=== PATIENT | male | born 1990 | race Caucasian/White ===

== ENCOUNTER 2017-01-11 11:34 | Inpatient (IN) ==
--- NOTE | 2017-01-11 11:47 | Emergency Department Note ---
Disposition Clinical Impression: Abnormal EKG, Elevated troponin, Renal insufficiency, Leukocytosis, Tachycardia , Altered mental status, Left sided abdominal pain, Cocaine abuse, Marijuana abuse, Benzodiazepine abuse, Narcotic abuse, Abnormal urinalysis, Lactic acidosis, Acute kidney injury Disposition: Admitted As Inpatient General Adult HPI - General Chief complaint: ED Overdose Stated complaint: Possible Overdose Time Seen by Provider: 01/11/17 11:46 Source: patient, EMS Limitations: no limitations - History of Present Illness HPI Narrative: 26-year-old male brought in by EMS from home. His female continuing education specialist was worried about his mental status. The patient was reportedly poorly arousable this morning and remained persistently poorly arousable. The patient's female continuing education specialist called EMS about the patient, and reportedly another female individual was at the home who was also brought into the ED via EMS for altered mental status per the patient's female continuing education specialist. The patient may have taken some Percocet last evening. There is no history of suicidality or homicidality. The patient complains of a headache as well as some left rib and abdominal pain. There is no history of trauma. The patient has no history of diabetes. He has no history of seizures. He is generally healthy. There is no history of fever. No vomiting or diarrhea. No trouble moving the arms or legs independently. No falls or injuries reported. There is no history of ingestion of other drugs of abuse or toxic substances. Pain Scale: 0 - Related Data Home Medications Medication Instructions Recorded Confirmed No Known Home Drugs 01/11/17 01/11/17 Allergies Allergy/AdvReac Type Severity Reaction Status Date / Time No Known Allergies Allergy Verified 10/22/15 23:48 All systems ED: reviewed and negative except as stated. Past Medical History - Past Medical History Medical history: Reports: no medical history Surgical history: Reports: no surgical history Psychiatric history: Reports: no psych history - Social History Smoking Status: Current every day smoker Smokeless Tobacco Status: No Alcohol use: Reports: occasionally Drug use: Reports: marijuana, prescription drug abuse Physical Exam - General Limitations: no limitations, other (The patient's laying with his eyes closed, he is well-nourished well-developed age-appropriate. He is arousable and does answer basic questions properly but when not stimulated closes his eyes and does not spontaneously interact.) General appearance: alert, in no apparent distress - Head Head exam: atraumatic, normocephalic, normal inspection - Eye Eye exam: Present: normal appearance, PERRL, EOMI, miosis (Slight miosis noted.) - ENT ENT exam: normal exam, normal oropharynx, mucous membranes moist, TM's normal bilaterally, normal external ear exam - Neck Neck exam: Present: normal inspection, full ROM, trachea midline. Absent: tenderness, meningismus - Chest Chest inspection: Present: symmetric chest wall rise, tenderness (Left lateral inferior ribs tender to palpation no qi bruising.) - Respiratory Respiratory exam: Present: normal lung sounds bilaterally. Absent: respiratory distress - Cardiovascular Cardiovascular exam: Present: regular rate, tachycardia - Abdominal Exam Abdominal exam: Present: soft, tenderness, normal bowel sounds, other (Pain in the left upper abdomen to palpation. This is reproducible, the patient has trouble sitting up secondary to pain). Absent: distention, guarding, rebound, rigidity, trauma, Escobar's sign, Rovsing's sign, tenderness at McBurney's Point , ascites, pulsatile mass Abdominal tenderness: Present: LUQ - Extremities Exam Extremities exam: Present: normal inspection, full ROM. Absent: tenderness, pedal edema - Expanded Lower Extremity Exam Hip/Pelvis exam: Present: full ROM. Absent: tenderness Upper leg exam: Present: full ROM. Absent: tenderness Knee exam: Present: full ROM. Absent: tenderness Lower leg exam: Present: full ROM. Absent: tenderness, Homans' sign Ankle exam: Present: full ROM. Absent: tenderness Foot/toe exam: Present: full ROM. Absent: tenderness Neurovascular/Tendon exam: Present: normal capillary refill. Absent: pulse deficit, motor deficit, sensory deficit, tendon deficit, extremity cold to touch , pallor - Back Exam Back exam: Present: normal inspection, full ROM. Absent: tenderness, CVA tenderness (R), CVA tenderness (L), vertebral tenderness - Neurological Exam Neurological exam: Present: alert, oriented X3, CN II-XII intact. Absent: motor sensory deficit - Psychiatric Psychiatric exam: Present: normal affect, normal mood - Skin Skin exam: Present: warm, dry, intact, normal color. Absent: rash, cyanosis, diaphoresis, erythema, pallor, mottled Course - Reevaluation(s) Reevaluation #1: An EKG was obtained which showed diffus ST elevations and more pronounced in V4 and V5. Compared to previous EKG this appears to be significantly abnormal. We have paged pupil personnel services director on-call, the ED charge nurse is taking the EKG directly to the Communication Engineer for their review. The patient complains of left lateral rib pain which seems to be reproducible palpation in the left upper quadrant and left ribs. There is no evidence of injury. *Dr. Alas/Interventional Cardiology reviewed the EKG directly. She feels this is more likely pericarditis recommends medical management. I discussed the case directly with her. Vital Signs Temperature 97.9 F 01/11/17 11:35 Pulse Rate 130 01/11/17 11:35 Respiratory Rate 16 01/11/17 11:35 Blood Pressure 123/84 01/11/17 11:35 O2 Sat by Pulse Oximetry 91 01/11/17 11:35 Temperature 97.9 F 01/11/17 11:35 Pulse Rate 93 01/11/17 15:30 Respiratory Rate 16 01/11/17 15:30 Blood Pressure 93/57 01/11/17 15:30 O2 Sat by Pulse Oximetry 98 01/11/17 15:30 Oxygen Delivery Oxygen Delivery Room Air Medical Decision Making - MDM Narrative Medical decision making narrative: During the patient's ED stay, he reports he was snorting white lines last night. His toxicology shows multiple drugs of abuse including cocaine marijuana opiates and benzodiazepines. The patient has no metabolic lactic acidosis, IV fluids were given. Aspirin was given. Based on his significant laboratory abnormalities, confusion, multidrug abuse, and acute presentation, I thought would be appropriate to admit the patient to the hospital. He is currently stable. The patient may have an element of pericarditis or other cardiac pathology. His troponin is elevated, his EKG is abnormal. I discussed the case with the hospitalist on-call. The packer on-call was also consulted during the patient's ED stay. The patient is currently stable pending admission. *The patient was given a few liters of IV fluid, his serum lactate dropped at 3.1. A second troponin is been ordered. - Lab Data Lab results reviewed: Yes I reviewed the patient's lab results. Result diagrams: 01/11/17 12:26 01/11/17 12:26 Lab Results 01/11/17 01/11/17 01/11/17 Range/Units 12:26 12:26 12:26 WBC 25.1 H (4.3-11.1) K/mcL RBC 5.13 (4.19-5.50) M/mcL Hgb 14.7 (12.9-16.9) g/dL Hct 45.8 (37.5-50.1) % MCV 89.3 (83.0-100.0) fL MCH 28.7 (28.0-33.3) pg MCHC 32.1 (31.6-35.5) g/dL RDW 12.3 (11.5-14.5) % Plt Count 268 (140-400) K/mcL MPV 10.3 (9.4-12.4) fL Immature Gran % 1.2 (0-4) % Seg Neutrophils % 84.8 % Lymphocytes % 3.2 % Monocytes % 10.6 % Eosinophils % 0.0 % Basophils % 0.2 % Neutrophils # 21.3 H (1.6-8.9) K/mcL Lymphocytes # 0.8 (0.6-4.6) K/mcL Monocytes # 2.7 H (0.0-1.3) K/mcL Eosinophils # 0.0 (0.0-0.6) K/mcL Basophils # 0.1 (0.0-0.2) K/mcL Platelet Estimate Normal (Normal) Sodium 140 (136-145) mEq/L Potassium 5.0 H (3.5-4.5) mEq/L Chloride 104 (98-109) mEq/L Carbon Dioxide 20 (19-29) mEq/L BUN 24 (8-26) mg/dL Creatinine 1.63 H (0.72-1.25) mg/dL Est GFR ( Amer) > 60 (> 60) Est GFR (Non-Af Amer) 52 L (> 60) BUN/Creatinine Ratio 15 (6-26) Glucose 94 (70-99) mg/dL Calculated Osmolality 294 (280-300) Lactic Acid 4.4 H* (0.5-2.2) mmol/L Calcium 9.4 (8.6-10.8) mg/dL Total Bilirubin 0.4 (0.2-1.2) mg/dL Direct Bilirubin 0.2 (0.0-0.5) mg/dL Indirect Bilirubin 0.2 (0.0-1.2) mg/dL AST 44 H (5-34) Units/L ALT 24 (0-55) Units/L Alkaline Phosphatase 105 (38-126) Units/L Troponin I (0-0.03) ng/mL C-Reactive Protein 3 (Less than 5) mg/L Serum Total Protein 7.5 (6.0-8.3) g/dL Albumin 4.5 (3.5-5.0) g/dL Globulin 3.0 (2.4-3.5) g/dL Albumin/Globulin Ratio 1.5 (1.1-2.2) Lipase 10 (8-78) Units/L Urine Color (Yellow) Urine Clarity (Clear) Urine pH (5.0-8.0) pH Units Ur Specific [place] (1.010-1.025) Urine Protein (Neg-Trace) mg/dL Urine Glucose (UA) (Normal) mg/dL Urine Ketones (Negative) mg/dL Urine Blood (Negative) Urine Nitrite (Negative) Urine Bilirubin (Negative) Urine Urobilinogen (Normal) mg/dL Ur Leukocyte Esterase (Negative) Urine Microscopic RBC (0-3) per hpf Urine Microscopic WBC (0-3) per hpf Ur Squamous Epith Cells (None-Few) per lpf Urine Bacteria (None-Few) per hpf Salicylates < 5.0 L (15-30) mg/dL Urine Opiates Screen (Kipjua=650) ng/mL Acetaminophen < 1.0 L (10-30) mcg/mL Ur Barbiturates Screen (Prulbj=297) ng/mL Ur Phencyclidine Scrn (Cutoff=25) ng/mL Ur Amphetamines Screen (Gqpndt=2799) ng/mL U Benzodiazepines Scrn (Zvstoz=216) ng/mL Urine Cocaine Screen (Cutoff= 300) ng/mL U Marijuana (THC) Screen (Cutoff = 50) ng/mL Ethyl Alcohol < 10 (0-10) mg/dL 01/11/17 01/11/17 01/11/17 Range/Units 12:26 13:40 13:40 WBC (4.3-11.1) K/mcL RBC (4.19-5.50) M/mcL Hgb (12.9-16.9) g/dL Hct (37.5-50.1) % MCV (83.0-100.0) fL MCH (28.0-33.3) pg MCHC (31.6-35.5) g/dL RDW (11.5-14.5) % Plt Count (140-400) K/mcL MPV (9.4-12.4) fL Immature Gran % (0-4) % Seg Neutrophils % % Lymphocytes % % Monocytes % % Eosinophils % % Basophils % % Neutrophils # (1.6-8.9) K/mcL Lymphocytes # (0.6-4.6) K/mcL Monocytes # (0.0-1.3) K/mcL Eosinophils # (0.0-0.6) K/mcL Basophils # (0.0-0.2) K/mcL Platelet Estimate (Normal) Sodium (136-145) mEq/L Potassium (3.5-4.5) mEq/L Chloride (98-109) mEq/L Carbon Dioxide (19-29) mEq/L BUN (8-26) mg/dL Creatinine (0.72-1.25) mg/dL Est GFR ( Amer) (> 60) Est GFR (Non-Af Amer) (> 60) BUN/Creatinine Ratio (6-26) Glucose (70-99) mg/dL Calculated Osmolality (280-300) Lactic Acid (0.5-2.2) mmol/L Calcium (8.6-10.8) mg/dL Total Bilirubin (0.2-1.2) mg/dL Direct Bilirubin (0.0-0.5) mg/dL Indirect Bilirubin (0.0-1.2) mg/dL AST (5-34) Units/L ALT (0-55) Units/L Alkaline Phosphatase (38-126) Units/L Troponin I 1.01 H* (0-0.03) ng/mL C-Reactive Protein (Less than 5) mg/L Serum Total Protein (6.0-8.3) g/dL Albumin (3.5-5.0) g/dL Globulin (2.4-3.5) g/dL Albumin/Globulin Ratio (1.1-2.2) Lipase (8-78) Units/L Urine Color Yellow (Yellow) Urine Clarity Cloudy A (Clear) Urine pH 5.5 (5.0-8.0) pH Units Ur Specific [place] 1.029 H (1.010-1.025) Urine Protein 30 H (Neg-Trace) mg/dL Urine Glucose (UA) Normal (Normal) mg/dL Urine Ketones Negative (Negative) mg/dL Urine Blood Negative (Negative) Urine Nitrite Negative (Negative) Urine Bilirubin Negative (Negative) Urine Urobilinogen Normal (Normal) mg/dL Ur Leukocyte Esterase Negative (Negative) Urine Microscopic RBC 5-15 H (0-3) per hpf Urine Microscopic WBC 3-5 H (0-3) per hpf Ur Squamous Epith Cells Many H (None-Few) per lpf Urine Bacteria None Seen (None-Few) per hpf Salicylates (15-30) mg/dL Urine Opiates Screen Positive H (Wxfiuy=262) ng/mL Acetaminophen (10-30) mcg/mL Ur Barbiturates Screen Negative (Ssvzyd=001) ng/mL Ur Phencyclidine Scrn Negative (Cutoff=25) ng/mL Ur Amphetamines Screen Negative (Bzizxh=5399) ng/mL U Benzodiazepines Scrn Positive H (Knsbrq=292) ng/mL Urine Cocaine Screen Positive H (Cutoff= 300) ng/mL U Marijuana (THC) Screen Positive H (Cutoff = 50) ng/mL Ethyl Alcohol (0-10) mg/dL 01/11/17 Range/Units 15:01 WBC (4.3-11.1) K/mcL RBC (4.19-5.50) M/mcL Hgb (12.9-16.9) g/dL Hct (37.5-50.1) % MCV (83.0-100.0) fL MCH (28.0-33.3) pg MCHC (31.6-35.5) g/dL RDW (11.5-14.5) % Plt Count (140-400) K/mcL MPV (9.4-12.4) fL Immature Gran % (0-4) % Seg Neutrophils % % Lymphocytes % % Monocytes % % Eosinophils % % Basophils % % Neutrophils # (1.6-8.9) K/mcL Lymphocytes # (0.6-4.6) K/mcL Monocytes # (0.0-1.3) K/mcL Eosinophils # (0.0-0.6) K/mcL Basophils # (0.0-0.2) K/mcL Platelet Estimate (Normal) Sodium (136-145) mEq/L Potassium (3.5-4.5) mEq/L Chloride (98-109) mEq/L Carbon Dioxide (19-29) mEq/L BUN (8-26) mg/dL Creatinine (0.72-1.25) mg/dL Est GFR ( Amer) (> 60) Est GFR (Non-Af Amer) (> 60) BUN/Creatinine Ratio (6-26) Glucose (70-99) mg/dL Calculated Osmolality (280-300) Lactic Acid 3.1 H (0.5-2.2) mmol/L Calcium (8.6-10.8) mg/dL Total Bilirubin (0.2-1.2) mg/dL Direct Bilirubin (0.0-0.5) mg/dL Indirect Bilirubin (0.0-1.2) mg/dL AST (5-34) Units/L ALT (0-55) Units/L Alkaline Phosphatase (38-126) Units/L Troponin I (0-0.03) ng/mL C-Reactive Protein (Less than 5) mg/L Serum Total Protein (6.0-8.3) g/dL Albumin (3.5-5.0) g/dL Globulin (2.4-3.5) g/dL Albumin/Globulin Ratio (1.1-2.2) Lipase (8-78) Units/L Urine Color (Yellow) Urine Clarity (Clear) Urine pH (5.0-8.0) pH Units Ur Specific [place] (1.010-1.025) Urine Protein (Neg-Trace) mg/dL Urine Glucose (UA) (Normal) mg/dL Urine Ketones (Negative) mg/dL Urine Blood (Negative) Urine Nitrite (Negative) Urine Bilirubin (Negative) Urine Urobilinogen (Normal) mg/dL Ur Leukocyte Esterase (Negative) Urine Microscopic RBC (0-3) per hpf Urine Microscopic WBC (0-3) per hpf Ur Squamous Epith Cells (None-Few) per lpf Urine Bacteria (None-Few) per hpf Salicylates (15-30) mg/dL Urine Opiates Screen (Mhmews=013) ng/mL Acetaminophen (10-30) mcg/mL Ur Barbiturates Screen (Onxamu=809) ng/mL Ur Phencyclidine Scrn (Cutoff=25) ng/mL Ur Amphetamines Screen (Qdfbbt=7976) ng/mL U Benzodiazepines Scrn (Nxuwjz=031) ng/mL Urine Cocaine Screen (Cutoff= 300) ng/mL U Marijuana (THC) Screen (Cutoff = 50) ng/mL Ethyl Alcohol (0-10) mg/dL - Radiology Data Radiology results reviewed: Yes I reviewed the patient's radiology results.
[2017-01-11 12:33] LABS: Basophils # 0.1 K/mcL (0.0-0.2); Basophils % 0.2 %; Hematocrit 45.8 % (37.5-50.1); Hemoglobin 14.7 g/dL (12.9-16.9); Immature Granulocytes % 1.2 % (0-4); Lymphocytes # 0.8 K/mcL (0.6-4.6); Lymphocytes % 3.2 %; Mean Corpuscular HGB Conc 32.1 g/dL (31.6-35.5); Mean Corpuscular Hemoglobin 28.7 pg (28.0-33.3); Mean Corpuscular Volume 89.3 fL (83.0-100.0); Mean Platelet Volume 10.3 fL (9.4-12.4); Monocytes # 2.7 K/mcL (0.0-1.3); Monocytes % 10.6 %; Neutrophils # 21.3 K/mcL (1.6-8.9); Platelet Count 268 K/mcL (140-400); Red Blood Count 5.13 M/mcL (4.19-5.50); Red Cell Distribution Width 12.3 % (11.5-14.5); Segmented Neutrophils % 84.8 %
[2017-01-11 12:49] LABS: Acetaminophen < 1.0 mcg/mL (10-30); Alanine Aminotransferase 24 Units/L (0-55); Albumin 4.5 g/dL (3.5-5.0); Albumin/Globulin Ratio 1.5 (1.1-2.2); Alkaline Phosphatase 105 Units/L (38-126); Aspartate Amino Transferase 44 Units/L (5-34); BUN/Creatinine Ratio 15 (6-26); Bilirubin,Direct 0.2 mg/dL (0.0-0.5); Bilirubin,Indirect 0.2 mg/dL (0.0-1.2); Bilirubin,Total 0.4 mg/dL (0.2-1.2); Blood Urea Nitrogen 24 mg/dL (8-26); Calcium 9.4 mg/dL (8.6-10.8); Carbon Dioxide 20 mEq/L (19-29); Chloride 104 mEq/L (98-109); Ethanol < 10 mg/dL (0-10); Glucose 94 mg/dL (70-99); Lipase 10 Units/L (8-78); Osmolality,Calculated 294 (280-300); Platelet Estimate Normal (Normal); Salicylate < 5.0 mg/dL (15-30); Sodium 140 mEq/L (136-145); Total Protein 7.5 g/dL (6.0-8.3); eGFR For African Americans > 60 (> 60); eGFR For Non-African Americans 52 (> 60)
[2017-01-11] MEDS ORDERED: 0.9 % Sodium Chloride 1,000 ML IVC ONE ×3 (12:59→16:15)
[2017-01-11] MEDS ORDERED: Aspirin 325 MG TABLET PO ONE ×2 (12:59→16:46)
[2017-01-11 13:02] LABS: C-Reactive Protein 3 mg/L (Less than 5)
[2017-01-11] MEDS ORDERED: Ondansetron 4 MG/2 ML VIAL IVP ONE (13:46)
[2017-01-11 13:48] LABS: Bilirubin,Urine Negative (Negative); Blood,Urine Negative (Negative); Clarity,Urine Cloudy (Clear); Color,Urine Yellow (Yellow); Glucose,Urine (UA) Normal (Normal); Ketones,Urine Negative (Negative); Leukocyte Esterase,Urine Negative (Negative); Nitrite,Urine Negative (Negative); PH,Urine 5.5 pH Units (5.0-8.0); Protein,Urine 30 mg/dL (Neg-Trace); Specific Gravity,Urine 1.029 (1.010-1.025); Urobilinogen,Urine Normal (Normal)
[2017-01-11 13:49] LABS: Bacteria,Urine None Seen per hpf (None-Few); Squamous Epithelial Cell,Urine Many per lpf (None-Few)
[2017-01-11 13:55] LABS: Amphetamine Screen,Urine Negative ng/mL (Cutoff=1000); Barbiturate Screen,Urine Negative ng/mL (Cutoff=200); Benzodiazepines Screen,Urine Positive ng/mL (Cutoff=200); Cannabinoid Screen,Urine Positive ng/mL (Cutoff = 50); Cocaine Screen,Urine Positive ng/mL (Cutoff= 300); Opiate Screen,Urine Positive ng/mL (Cutoff=300); Phencyclidine Screen,Urine Negative ng/mL (Cutoff=25)
[2017-01-11] MEDS ORDERED: Acetaminophen 325 MG TABLET PO PRN (16:42)
[2017-01-11] MEDS ORDERED: Ondansetron 4 MG/2 ML VIAL IVP PRN (16:42)
[2017-01-11] MEDS ORDERED: *HR* Morphine 2 MG/ML SYRINGE IVP PRN (16:42)
[2017-01-11] MEDS ORDERED: Naloxone 0.4 MG/ML INJ IVP PRN (16:42)
[2017-01-11] MEDS ORDERED: *HR* HYDROcodone/Acet 5/325 mg TABLET PO PRN (16:42)
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
[2017-01-11] MEDS: 0.9 % Sodium Chloride 1,000 ML IVC SCH (19:39)
[2017-01-11] MEDS ORDERED: *HR* LORazepam 2 MG/ML VIAL IVP PRN (20:27)
[2017-01-11 22:40] LABS: BUN/Creatinine Ratio 18 (6-26); Blood Urea Nitrogen 23 mg/dL (8-26); Calcium 8.7 mg/dL (8.6-10.8); Carbon Dioxide 22 mEq/L (19-29); Chloride 106 mEq/L (98-109); Glucose 89 mg/dL (70-99); Osmolality,Calculated 285 (280-300); Potassium 4.8 mEq/L (3.5-4.5); Sodium 136 mEq/L (136-145); eGFR For African Americans > 60 (> 60); eGFR For Non-African Americans > 60 (> 60)
--- NOTE | 2017-01-11 23:23 | Event Note ---
Date of Encounter: 01/11/17 Time of Encounter: 23:21 Called by RN about patient meeting criteria for sepsis. Based upon admission notes and RN impression, criteria likely due to multi-drug overdose. Lactate levels have normalized. He has received fluid boluses and is on MIV currently. I will order blood and urine cultures and start empiric antibiotics for now. Repeat labs already ordered for a.m.
[2017-01-11] MEDS ORDERED: Vancomycin 1,000 MG in D5% in Water 250 ML IVPB SCH (23:45)
[2017-01-11] MEDS: Aspirin 325 MG TABLET PO SCH (23:59)
[2017-01-12] MEDS: Piperacillin/Tazobactam 3.375 GM in D5% in Water (Mini-Bag+) 100 ML IVPB SCH ×3 (00:19→15:52)
[2017-01-12 00:47] LABS: Basophils % 0.1 %; Hematocrit 39.6 % (37.5-50.1); Hemoglobin 13.5 g/dL (12.9-16.9); Immature Granulocytes % 1.2 % (0-4); Lymphocytes # 1.2 K/mcL (0.6-4.6); Lymphocytes % 5.5 %; Mean Corpuscular HGB Conc 34.1 g/dL (31.6-35.5); Mean Corpuscular Hemoglobin 29.6 pg (28.0-33.3); Mean Corpuscular Volume 86.8 fL (83.0-100.0); Mean Platelet Volume 11.2 fL (9.4-12.4); Monocytes % 4.6 %; Neutrophils # 18.7 K/mcL (1.6-8.9); Platelet Count 242 K/mcL (140-400); Red Blood Count 4.56 M/mcL (4.19-5.50); Red Cell Distribution Width 12.8 % (11.5-14.5); Segmented Neutrophils % 88.6 %
[2017-01-12 00:52] LABS: INR 1.3; Prothrombin Time 14.2 Seconds (9.4-12.1)
[2017-01-12 00:55] LABS: Activated Partial Thrombo Time 31.8 Seconds (26.0-36.0)
[2017-01-12 01:07] LABS: BUN/Creatinine Ratio 18 (6-26); Blood Urea Nitrogen 23 mg/dL (8-26); Carbon Dioxide 19 mEq/L (19-29); Chloride 106 mEq/L (98-109); Glucose 86 mg/dL (70-99); Osmolality,Calculated 291 (280-300); Potassium 4.5 mEq/L (3.5-4.5); Sodium 139 mEq/L (136-145); eGFR For African Americans > 60 (> 60); eGFR For Non-African Americans > 60 (> 60)
[2017-01-12 01:09] LABS: Albumin 3.7 g/dL (3.5-5.0); Albumin/Globulin Ratio 1.5 (1.1-2.2); Bilirubin,Direct 0.2 mg/dL (0.0-0.5); Bilirubin,Indirect 0.3 mg/dL (0.0-1.2); Bilirubin,Total 0.5 mg/dL (0.2-1.2); Globulin 2.4 g/dL (2.4-3.5); Total Protein 6.1 g/dL (6.0-8.3)
[2017-01-12] MEDS: Vancomycin 1,000 MG in D5% in Water 250 ML IVPB SCH ×3 (01:29→23:48)
[2017-01-12] MEDS: 0.9 % Sodium Chloride 1,000 ML IVC SCH ×4 (03:29→19:29)
[2017-01-12] MEDS: Aspirin 325 MG TABLET PO SCH (06:19)
--- NOTE | 2017-01-12 09:54 | ECHO - Doppler Report ---
Echocardiogram Name: Bulmaro Fajardo Date of Study: 01/12/2017 Date: 1990 Ht: 72.0 in Medical Record#: [id number] Age: 26 Wt: 154.0 lb Gender: Male BSA: 1.91 Order #: [id number] Location: [facility] Room #: 2N05 Reading Physician: Wanda Booker DO Bottom Steep Tender: Kenroy Prieto RDCS Ordering Physician: Gian Bhandari MD Primary Physician: None Indications: Pericarditis Impressions: LVEF 55%. Normal left ventricular size and systolic function. Normal diastolic function of the left ventricle. Normal right ventricular size and function. No significant valvular dysfunction. No pulmonary hypertension. Left Ventricular Wall Motion: Rest Echo Findings All wall segments showed normal motion. Findings: Study Quality * Technically adequate exam. ECG Findings * Normal sinus rhythm. Left Ventricle * LVEF 55%. * Normal LV chamber size, wall thickness and function. * Normal left ventricular diastolic function. Left Atrium * Normal left atrial size. Mitral Valve * Normal mitral valve structure. * No mitral stenosis. * No mitral regurgitation. Aortic Valve * No aortic regurgitation. * Aortic valve not well visualized. * No aortic stenosis. Tricuspid Valve * Normal tricuspid valve structure. * Estimated RA pressure is 3 mmHg. * Trace tricuspid regurgitation. Pulmonic Valve * Normal pulmonic valve structure. * No pulmonic stenosis. * Trace pulmonic regurgitation. Pulmonary Artery * Normal visualized portions of the main pulmonary artery. Right Ventricle * Normal right ventricular structure and function. Right Atrium * Normal right atrial size. Pericardium * There is no pericardial effusion present. Interatrial Septum * No evidence of PFO by color Doppler. IVC * The IVC is not dilated. Aorta * Normally sized aortic root. History History of Smoking Years 10 Packs 1 Measurements: BP: 94/ 60 2D Normal Values RVIDd: 2.89 cm <2.7 cm IVSd: .85 cm 0.6 - 1.0 cm LVIDd: 4.84 cm 3.7 - 5.6 cm LVPWd: .80 cm 0.6 - 1.1 cm LVIDs: 3.34 cm 1.5 - 3.6 cm AO: 2.20 cm < 4.0 cm LA: 2.70 cm 2.0 - 4.0cm %FS: 31.00 cm >25 % LA volume: 39 Mitral Valve Peak E:.95 m/sec Peak A:.62 m/sec E/A Ratio:1.5 Peak E' Lat Walker:11.4 cm/s Peak E' Med Walker:10.7 cm/s E/E' Lat Ratio:8.3 E/E' Med Ratio:8.9 Tricuspid Valve TV Regurg Peak Grad: 12.00mmHg TV Regurg Peak Walker: 1.75m/sec Updated by Wanda Booker on 01/12/2017 9:47:24 AM electronically signed on 01/12/2017 9:48:12 AM with status of Final Wall Motion Cespedes: 1=Normal, 2=Hypokinesis, 3=Akinesis, 4=Dyskinesis, 5=Aneurysmal, 6=Hyperkinetic, X=Not Visualized (Blank)=Missing
--- NOTE | 2017-01-12 10:21 | Cardiology Consult Note ---
Date of Encounter: 01/12/17 Time of Encounter: 10:00 Assessment and Plan (1) Elevated troponin Current Visit: Yes Status: Acute Peak troponin 1.01 with downward trend in the setting overdose with: benzo, cocaine, marijuana, and opiates. ECG changes and elevated troponin likely secondary to overdose. Risk factors for CAD include: tobacco use, 1ppd. He denies IVDA--reports by mouth/snorting. TTE shows preserved LVEF, 55% with normal wall motion, no significant valvular dysfunction. Discussed importance of sober lifestyle. No further testing recommended from Cardiology standpoint. (2) Abnormal EKG Current Visit: Yes Status: Acute Plan as stated above. (3) Cocaine abuse Current Visit: Yes Status: Acute Discussion w patient/family: The assessment and plan as outlined above was discussed with the patient and/or family members who expressed understanding and agreement. All questions were answered. Thank you for involving us in the care of your patient. Please call with any questions. The patient will be discussed and reviewed with Dr. Jaime; changes to be made accordingly. History of Present Illness Consult date: 01/12/17 Requesting physician: Gian Bhandari Consult reason: Elevated troponin, abnormal ECG Chief complaint: Overdose History of present illness: Mr. Fajardo is a 26 year old male with no significant PMH presented to the ED due to AMS; EMS was reportedly called by friend because he was poorly arousable. Urine drug screen tested positive for benzo, cocaine, marijuana, and opiates. ECG demonstrated diffuse ST abnormalities; reviewed with interventionalist, Dr. Alas upon presentation who felt changes were secondary to pericarditis. He denies recent cough/flu/or viral illness. States he was in his normal state of health up until event yesterday. He denies IVDA, states all illicit drug use was "snorted." Past Med Surg Social Fam HX - Past Medical History Attestation: Yes The following information was validated with the patient. Source: patient Medical history: no medical history Psychiatric history: no psych history - Past Surgical History Surgical History: orthopedic, other (left foot, plates) - Social History Smoking Status: Current every day smoker Packs per day: 1 Smokeless Tobacco Status: No Alcohol use: occasionally Drug use: cocaine, marijuana, prescription drug abuse - Family History Mother Living Status: Still Living Hx Family Cardiac Disorders: Yes (HTN) Medications and Allergies No Known Home Drugs 01/11/17 [History] Allergies No Known Allergies Allergy (Verified 10/22/15 23:48) All Systems Review: A 10-system review of systems was performed and is negative for pertinent findings except as documented above in the HPI. - Cardiovascular Cardiovascular: as per HPI Physical Examination Vital Signs, Last 4 Hours Temp Pulse Resp BP Pulse Ox 01/12/17 07:56 98.4 F 88 16 94/60 97 01/12/17 07:00 88 General: Conversant, No Apparent Distress HEENT: Atraumatic, Normocephaly Cardiac: Reg Rate and Rhythm, Normal S1 and S2 Lungs: Normal Breath Sounds, No Wheeze, Rales, Rhonchi Neuro: Alert and responsive, No focal deficits noted Abdomen: Soft, Non-Tender Skin: No rashes noted on visualized skin Musculoskeletal: No Chest Wall Tenderness Extremities: No Edema, Normal Pulses Results 01/12/17 00:25 01/12/17 00:25 Lab Results 01/11/17 01/11/17 01/12/17 19:00 21:57 00:25 WBC 21.1 H Hgb 13.5 Hct 39.6 Plt Count 242 INR APTT Sodium 136 Potassium 4.8 H Chloride 106 Carbon Dioxide 22 BUN 23 Creatinine 1.29 H Glucose 89 Calcium 8.7 Total Bilirubin AST ALT Alkaline Phosphatase Troponin I 0.86 H* 01/12/17 01/12/17 01/12/17 00:25 00:25 00:25 WBC Hgb Hct Plt Count INR 1.3 APTT 31.8 Sodium 139 Potassium 4.5 Chloride 106 Carbon Dioxide 19 BUN 23 Creatinine 1.28 H Glucose 86 Calcium 9.0 Total Bilirubin 0.5 AST 30 ALT 20 Alkaline Phosphatase 63 Troponin I 01/12/17 05:57 WBC Hgb Hct Plt Count INR APTT Sodium Potassium Chloride Carbon Dioxide BUN Creatinine Glucose Calcium Total Bilirubin AST ALT Alkaline Phosphatase Troponin I 0.36 H* - Imaging and Cardiology Echo: report reviewed Other Results: 12 hour tele: avg HR=78 SR. No signficant events noted. - EKG Interpretation EKG results cardiology: personally reviewed Consult Discharge Plan - Plan Referrals: NO,PCP [Primary Care Provider] -
--- NOTE | 2017-01-12 13:00 | Internal Med Progress Note ---
Date of Encounter: 01/12/17 Time of Encounter: 12:44 - Assessment and plan (1) Polysubstance abuse Current Visit: Yes Status: Acute Assessment and plan: Urine tox screen positive for Opiates, Benzos, Cocaine, and Marijuana Patient denies any IVDA 2D echo negative for any valvular disease extensive counseling provided against polysubstance abuse patient not very cooperative, and does not appear to want to quit polysubstance use social service liaison consultation requested mental status at baseline will continue to monitor no signs of withdrawal present at this time, will continue to monitor (2) Overdose Current Visit: Yes Status: Acute Assessment and plan: as listed above Qualifiers: Encounter type: initial encounter Injury intent: undetermined intent Qualified Code(s): T50.904A - Poisoning by unspecified drugs, medicaments and biological substances, undetermined, initial encounter (3) Leukocytosis Current Visit: Yes Status: Acute Assessment and plan: Likely reactive however given severity will continue with empiric abx for one more day and de-escalate therapy as per culture reports Qualifiers: Leukocytosis type: unspecified Qualified Code(s): D72.829 - Elevated white blood cell count, unspecified (4) Tobacco abuse Current Visit: Yes Status: Chronic Assessment and plan: smoking cessation counseling provided patient not ready to quit at this time refused nicotine replacement therapy (5) Acute kidney injury Current Visit: Yes Status: Acute Assessment and plan: Likely secondary to drug abuse will continue IV fluids continue to avoid nephrotoxic agents will continue to monitor (6) Elevated troponin Current Visit: Yes Status: Acute Assessment and plan: cardiology eval appreciated no further intervention recommended at this time no chest pain reported discontinue high dose aspirin. - Subjective Interval history: Patient seen and examined with his mother present at bedside. Patient reports of having history of drug abuse for the last few years. He is agitated when confronted about his drug abuse. Denies any complains at this time. Extensive counseling was provided to the patient in regards to his tobacco and polysubstance abuse. - Constitutional Vitals: Temp Pulse Resp BP Pulse Ox 98.2 F 70 18 105/70 95 01/12/17 10:48 01/12/17 10:48 01/12/17 10:48 01/12/17 10:48 01/12/17 10:48 General appearance: Present: cooperative, A&O X 3, pleasant, answers questions appropriately - Head Head exam: Present: atraumatic, normocephalic - Eye Eye exam: Present: PERRL, conjuntiva pink, sclera anicteric - Respiratory Respiratory exam: Present: CTAB. Absent: accessory muscle use, rales, rhonchi, wheezes - Cardiovascular Cardiovascular exam: Present: RRR, +S1, +S2. Absent: diastolic murmur, gallop, rubs, systolic murmur - GI/Abdominal GI/Abdominal exam: Present: normal bowel sounds, soft, no peritoneal signs. Absent: distended, tenderness - Extremities Exam Extremities exam: Present: warm, radial pulses palpable and symetrical. Absent : calf tenderness, cyanotic, pedal edema - Neurological Exam Neurological exam: Present: alert, oriented X3 - Psychiatric Psychiatric exam: Present: normal affect, normal mood Internal Medicine: Result - Labs CBC & Chem 7: 01/12/17 00:25 01/12/17 00:25 Labs: Short CBC 01/12/17 Range/Units 00:25 WBC 21.1 H (4.3-11.1) K/mcL Hgb 13.5 (12.9-16.9) g/dL Hct 39.6 (37.5-50.1) % Plt Count 242 (140-400) K/mcL Neutrophils # 18.7 H (1.6-8.9) K/mcL BMP 01/11/17 01/12/17 21:57 00:25 Sodium 136 139 Potassium 4.8 H 4.5 Chloride 106 106 Carbon Dioxide 22 19 BUN 23 23 Creatinine 1.29 H 1.28 H Glucose 89 86 Calcium 8.7 9.0 Cardiac Enzymes 01/11/17 01/12/17 Range/Units 19:00 05:57 Troponin I 0.86 H* 0.36 H* (0-0.03) ng/mL Liver Function 01/12/17 Range/Units 00:25 Total Bilirubin 0.5 (0.2-1.2) mg/dL Direct Bilirubin 0.2 (0.0-0.5) mg/dL AST 30 (5-34) Units/L ALT 20 (0-55) Units/L Alkaline Phosphatase 63 (38-126) Units/L Albumin 3.7 (3.5-5.0) g/dL - ABG Interpretation ABG results: PT/INR, D-dimer PT 14.2 Seconds (9.4-12.1) H 01/12/17 00:25 - Impressions Impressions Retroperitoneum Ultrasound 01/11/17 20:30 IMPRESSION: Unremarkable ultrasound of the kidneys and urinary bladder. As previously demonstrated on the CT evaluation there is some fluid in Landin's pouch. D/ / 01/11/2017 21:17:43 Catalina Yarbrough MD / [facility] Interpreting Provider: Catalina Yarbrough MD Consult Discharge Plan - Plan Referrals: NO,PCP [Primary Care Provider] -
[2017-01-12] MEDS: Nicotine 21 MG PATCH.TD24 TD SCH (15:52)
--- NOTE | 2017-01-12 18:03 | Electrocardiograph Report ---
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
--- NOTE | 2017-01-12 18:03 | Electrocardiograph Report ---
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
[2017-01-13] MEDS: Piperacillin/Tazobactam 3.375 GM in D5% in Water (Mini-Bag+) 100 ML IVPB SCH ×2 (00:02→09:13)
[2017-01-13] MEDS: 0.9 % Sodium Chloride 1,000 ML IVC SCH ×2 (02:18→09:25)
[2017-01-13 05:46] LABS: Basophils % 0.2 %; Eosinophils # 0.1 K/mcL (0.0-0.6); Eosinophils % 0.5 %; Hematocrit 35.4 % (37.5-50.1); Immature Granulocytes % 0.6 % (0-4); Lymphocytes # 2.2 K/mcL (0.6-4.6); Lymphocytes % 12.6 %; Mean Corpuscular HGB Conc 33.9 g/dL (31.6-35.5); Mean Corpuscular Hemoglobin 29.5 pg (28.0-33.3); Monocytes # 1.3 K/mcL (0.0-1.3); Monocytes % 7.8 %; Neutrophils # 13.5 K/mcL (1.6-8.9); Platelet Count 229 K/mcL (140-400); Red Blood Count 4.07 M/mcL (4.19-5.50); Segmented Neutrophils % 78.3 %
[2017-01-13 06:06] LABS: BUN/Creatinine Ratio 14 (6-26); Blood Urea Nitrogen 15 mg/dL (8-26); Calcium 8.7 mg/dL (8.6-10.8); Carbon Dioxide 19 mEq/L (19-29); Chloride 114 mEq/L (98-109); Glucose 97 mg/dL (70-99); Magnesium 1.9 mg/dL (1.6-2.6); Osmolality,Calculated 295 (280-300); Phosphorous 1.5 mg/dL (2.3-4.7); Potassium 3.8 mEq/L (3.5-4.5); Sodium 142 mEq/L (136-145); eGFR For African Americans > 60 (> 60); eGFR For Non-African Americans > 60 (> 60)
[2017-01-13] MEDS: Nicotine 21 MG PATCH.TD24 TD SCH (09:25)
--- NOTE | 2017-01-13 10:56 | Discharge Summary ---
Date of Encounter: 01/13/17 Time of Encounter: 10:20 - Discharge Diagnosis (1) Polysubstance abuse Priority: Primary Status: Acute (2) Overdose Priority: Primary Status: Acute Qualifiers: Encounter type: initial encounter Injury intent: undetermined intent Qualified Code(s): T50.904A - Poisoning by unspecified drugs, medicaments and biological substances, undetermined, initial encounter (3) Leukocytosis Priority: Secondary Status: Acute Comments: Concern for aspiration pneumonia, will treat with Levaquin for a total of 7 days. Qualifiers: Leukocytosis type: unspecified Qualified Code(s): D72.829 - Elevated white blood cell count, unspecified (4) Tobacco abuse Priority: Secondary Status: Chronic (5) Acute kidney injury Priority: Secondary Status: Resolved (6) Elevated troponin Priority: Secondary Status: Acute - Discharge Medications Prescriptions: Levofloxacin [Levaquin] 750 mg PO DAILY #5 tablet Home Medications: Levofloxacin [Levaquin] 750 mg PO DAILY #5 tablet 01/13/17 [Rx] Allergies/Adverse Reactions: Allergies No Known Allergies Allergy (Verified 10/22/15 23:48) Procedures/tests Complete & Pending: Procedures Performed prior 72 hours Category Date Time Status Retroperitoneal Ultrasound - Complete [US Exams 01/11/17 20:30 Completed retroperitoneal comp] [US] Stat EV echocardiogram Stat Y 01/12/17 16:45 Completed Date of admission: 01/11/17 16:42 Primary care physician: PCP NO Consults: 01/11/17 20:29 Consult to [employer] [CONS] Routine Reason for SW Consult: Patient has polysubstance abuse, eval for resources Discharging clinician: Jeanette Moncada Anticipated date of discharge: 01/13/17 - Patient Status Disposition: Home, Self-Care Condition: Good Functional capacity at discharge: independent ambulation Overall status at discharge: patient is back to baseline - Discharge Instructions Follow Up With: Chloe Srinivasan CNP [Advanced Practice Nurse] - 01/17/17 9:00 am (Please arrive at 0830 to fill out paper work. You will need 125.00 upfront for the first visit. Please take your picture ID, Insurance cards, all medication in the bottles to your visit. Take your discharge instructions with you to your appointment. Please call and cancel within 24 hours at [phone] if not able to make your appointment. ) NO,PCP [Primary Care Provider] - Additional Instructions: Please follow up with your primary care physician within one week after your discharge from the hospital. Please continue to take Levaquin as prescribed. Smoking cessation is advised Polysubstance use (benzodiazepines, cocaine, marijuana, heroin) cessation is advised - Diet and Activity Activity: resume usual activities as tolerated Diet: advance to your usual diet Hospital course: Mr. Fajardo is a 26 year old male with PMH Of tobacco abuse, polysubstance abuse who was admitted s/p polysubstance overdose. He was found to have a tox screen positive for benzo, cocaine, marijuana, and opioids. Prior to his arrival to the ER he was found to have a witnessed episode of seizure like activity. He was found to have leukocytosis, and MAXWELL. He was started on empiric IV abx for a concern for aspiration PNA and IV fluids. He also had a 2D echo which was negative for any valvular vegetations. Patient' responded well to therapy with resolution of MAXWELL and improvement in leukocytosis. He was seen by social service director and patient refused any outpatient resources but states he is willing to comply and will refrain from using any drugs after his discharge. At this time he is hemodynamically stable and will be discharged to home with follow up with his PCP. He is to continue oral antibiotics for a total of 7 days. Patient demonstrates understanding of his diagnosis and agrees with the discharge plan. - Time Spent with Patient Total time spent providing and/or coordinating discharge services: Greater than 30 minutes - Constitutional Vitals: Temp Pulse Resp BP Pulse Ox 98.4 F 57 12 116/81 100 01/13/17 08:59 01/13/17 08:59 01/13/17 08:59 01/13/17 07:26 01/13/17 08:59 General appearance: Present: cooperative, A&O X 3, pleasant, answers questions appropriately - Head Head exam: Present: atraumatic, normocephalic - Eye Eye exam: Present: PERRL, conjuntiva pink, sclera anicteric - Respiratory Respiratory exam: Present: CTAB. Absent: accessory muscle use, rales, rhonchi, wheezes - Cardiovascular Cardiovascular exam: Present: RRR, +S1, +S2. Absent: diastolic murmur, gallop, rubs, systolic murmur - GI/Abdominal GI/Abdominal exam: Present: normal bowel sounds, soft, no peritoneal signs. Absent: distended, tenderness - Extremities Exam Extremities exam: Present: warm, radial pulses palpable and symetrical. Absent : calf tenderness, cyanotic, pedal edema - Neurological Exam Neurological exam: Present: alert, CN II-XII intact, oriented X3, no focal deficits. Absent: pronater drift, facial droop, speech deficit - Psychiatric Psychiatric exam: Present: normal affect, normal mood
[2017-01-13] MEDS: Vancomycin 1,000 MG in D5% in Water 250 ML IVPB SCH (13:20)
[2017-01-13 13:54] VITALS: BP 133/93
[2017-01-13] MEDS ORDERED: Aminoglycoside Consult 1 EACH MC ONE (15:55)
== END 2017-01-13 15:56 | disposition home or self-care (01) | DRG 812 ==
LOC: EMEROO 11:34 → 2NNU 11:34
PROVIDERS: ADMIT Internal Medicine; ATTEND Internal Medicine